=== PATIENT | female | born 1975 | race African-American/Black ===

== ENCOUNTER 2016-05-27 18:35 | Emergency (ER) | payer MEDICARE, MEDICAID ==
[2016-05-27 19:19] VITALS: TEMP 99.7; BMI 20.4
--- NOTE | 2016-05-27 20:24 | DIRPT ---
CLINICAL DATA: Slipped on ice and fell at home today. Right leg and ankle pain. EXAM: RIGHT TIBIA AND FIBULA - 2 VIEW; RIGHT ANKLE - COMPLETE 3+ VIEW COMPARISON: None. FINDINGS: Right tibia/ fibula: The knee and ankle joints are maintained. No acute fracture of the tibia or fibula is identified. Area of cortical thickening involving the distal fibula may be related to remote trauma. Right ankle: The ankle mortise is maintained. No acute ankle fracture or osteochondral abnormality. Possible ankle joint effusion. The mid and hindfoot bony structures are intact. IMPRESSION: No acute fracture of the tibia/ fibula or ankle. Electronically Signed By: Alma Meehan M.D. On: 05/27/2016 20:22
[2016-05-27] MEDS ORDERED: HYDROmorphone 1 MG INJECTION IM ONE (20:48)
--- NOTE | 2016-05-27 20:54 | EDPRACDOC ---
- General Chief Complaint: Lower Leg Pain Stated Complaint: SLIPPED & FELL RT LEG PAIN Time Seen by Provider: 05/27/16 20:33 Information Source: Patient - History of Present Illness Onset: today HPI: PT PRESENTS TODAY WITH RIGHT LOWER LEG/ANKLE PAIN AFTER MECHANICAL FALL [employer]. STATES SLIPPED ON ICE. Pain Severity: Reports: Severe Injuries/Pain Location: Reports: lower extremity Reason for Fall: Reports: slipped Loss of Consciousness: no loss of consciousness Modifying Factors: improves with: movement Associated Symptoms (Fall): Reports: denies symptoms Allergies/Adverse Reactions: Allergies butorphanol [From Stadol] Allergy (Verified 05/27/16 19:16) Hives* ketorolac [From Toradol] Allergy (Verified 05/27/16 19:16) Hives* ondansetron Allergy (Verified 05/27/16 19:16) Hives* ED Past Medical History - History Reviewed Yes Nurses notes reviewed and agree except as marked - Patient Medical History Surgical History: Denies: Hysterectomy - Social Medical History Smoking Status: Never smoker EDM Review of Systems - Review of Systems ROS Negative Except as Marked: Yes All systems reviewed and were negative except as marked Constitutional: No Symptoms Reported Respiratory: No Symptoms Reported Cardiovascular: No Symptoms Reported Gastrointestinal: No Symptoms Reported Neurological: No Symptoms Reported Musculoskeletal: Ankle, Leg Integumentary: No Symptoms Reported - Physical Exam Constitutional: Alert, Distress Oriented to: Time, Person, Place Last recorded Vital Signs: Last Vital Signs Temp 99.7 F 05/27/16 19:17 Pulse 94 05/27/16 19:41 Resp 20 05/27/16 19:41 BP 128/58 L 05/27/16 19:41 Pulse Ox 97 05/27/16 19:41 Oxygen Pulse Oxygen Saturation 97 O2 Device Room Air Oxygen Flow Rate Fraction of Inspired Oxygen ( FIO2) - HEENT Head: Normal Eye Exam: Normal Neck: Normal, Denies Pain, Midline - Respiratory/Cardiovascular Respiratory: Normal - CTA Cardiovascular: Normal - GI Palpation: Normal Tenderness: Non tender - Musculoskeletal Back: Normal Extremities: Other (SEVERE TTP TO RIGHT LATERAL ANKLE; NO APPARENT SWELLING/ DEFORMITY NOTED; PEDAL PULSES NORMAL) - Integumentary Skin: Normal Lymphatics: Normal - Neurologic Cerebellar: Normal Mood Description: Normal Thought: Coherent Perception: Normal ED Injury/Fall Exam - Physical Exam Head Injury: no evidence of injury Extremity Exam: pelvis stable, pain with movement Skin: Normal - [place] Coma Score Best Eye Response (Zamzam): (4) open spontaneously Best Verbal Response ([place]): (5) oriented Best Motor Response ([place]): (6) obeys commands Zamzam Total: 15 - Additional Information PT TAKES 30 MG OF MORPHINE TID FOR SICKLE CELL DISEASE AT HOME. Decision Time to Discharge: 20:54 - Departure Disposition: Home Condition: Good Final Diagnosis: Injury of lower extremity Instructions: RICE: Routine Care for Injuries Education/Counseling Given To: Patient, Family Member Education/Counseling Given Regarding: Diagnosis, Treatment, Follow Up Referrals: Thomas Friedman MD [Primary Care Provider] - One Week Additional Instructions: REST AND ICE LOWER LIMB FOR ADDITIONAL PAIN RELIEF. CONTINUE OTHER PAIN MEDICATIONS PRESCRIBED AT HOME.
[2016-05-27 21:04] VITALS: BP 111/49; PULSE 98
== END 2016-05-27 21:20 | disposition home or self-care (01) ==
LOC: EDMC 18:35
DX: S99.911A Unspecified injury of right ankle, initial encounter (principal); W19.XXXA Unspecified fall, initial encounter; Y93.9 Activity, unspecified
CPT/HCPCS: 73590; 73610; 96372; 99283; J1170

== ENCOUNTER 2016-06-17 10:58 | Emergency (ER) | payer MEDICAID, MEDICARE, OTHER ==
[2016-06-17 10:58] VITALS: BMI 20.4
== END 2016-06-18 07:35 | disposition expired ==
LOC: ED 10:58